=== PATIENT | female | born 1950 | race Caucasian/White ===

== ENCOUNTER 2017-07-16 09:53 | Day surgery (SDC) | payer MEDICARE ==
[~2017-07-16] VITALS: Ht 162.6 cm; Wt 87.5 kg
[~2017-07-16 09:53] MED LIST: AMOX; ASPI325 PO; CETI5 PO; CHOL10002 PO; CLIN300 PO; IBUP800 PO; NAPR550 PO; OMEPRAZOLE MAGN20 MG PO; OXYACE5T PO; PRAV20 PO; PROM25 PO; RXHYDACE PO; RXNAPNA550 PO; VICODIN
[2017-07-16] MEDS ORDERED: ACET500 (12:04)
[2017-07-16] MEDS ORDERED: ACET500 PO (12:04)
[2017-07-16] MEDS ORDERED: OXYC5 PO (12:05)
[2017-07-17 04:15] LABS: BASOPHILS ABSOLUTE AUTO 0.01 K/mm3 (0.00-0.23); BASOPHILS PERCENT AUTO 0 % (0-2); EOSINOPHILS PERCENT AUTO 0 % (0-6); Hematocrit 35.5 % (33.0-51.0); Hemoglobin 11.8 g/dL (11.5-16.0); IMMATURE GRAN ABSOLUTE AUTO 0.08 K/mm3 (0.00-0.10); IMMATURE GRAN PERCENT AUTO 1 % (0-1); LYMPHOCYTES ABSOLUTE AUTO 1.24 K/mm3 (0.84-5.20); LYMPHOCYTES PERCENT AUTO 8 % (21-46); MONOCYTES ABSOLUTE AUTO 0.95 K/mm3 (0.16-1.47); MONOCYTES PERCENT AUTO 6 % (4-13); Mean Corpuscular HGB 28.8 pg (26.0-34.0); Mean Corpuscular HGB Conc 33.2 g/dL (31.5-36.5); Mean Corpuscular Volume 87 fL (80-100); Mean Platelet Volume 10.8 fL (9.1-12.4); NEUTROPHILS ABSOLUTE AUTO 14.12 K/mm3 (1.96-9.15); NEUTROPHILS PERCENT AUTO 86 % (41-73); Platelet Count 223 K/mm3 (150-400); RDW Coefficient Variation 13.2 % (11.7-14.2); RDW Standard Deviation 41.1 fL (35.1-46.3)
[2017-07-17 04:40] LABS: Magnesium, Blood 2.3 mg/dL (1.6-2.4)
[2017-07-17 04:42] LABS: Anion Gap 4 mmol/L (6-16); Blood Urea Nitrogen 12 mg/dL (8-24); Bun/Creatinine Ratio 15.9 (12.0-20.0); CO2, Blood 29 mmol/L (21-32); Calcium, Blood 8.5 mg/dL (8.5-10.1); Chloride, Blood 106 mmol/L (98-108); Creatinine, Blood 0.76 mg/dL (0.40-1.00); Glomerular Filtration Rate >60 (60-); Glucose, Blood 132 mg/dL (70-99); Potassium, Blood 5.1 mmol/L (3.5-5.5); Sodium, Blood 139 mmol/L (136-145)
== END 2017-07-17 11:02 | disposition home or self-care (01) ==
LOC: PRE IP 09:53 → BC 09:53 → ORSCMMR 09:53 → SURS 09:53 → BC 09:53 → SURS 09:56 → BC 09:56 → SURS 09:56 → PRE IP 11:30 → EDSTATUS 11:30 → SURS 14:31 → ORSCMMR 07-17 11:02
PROVIDERS: Orthopaedic Surgery
PROC: 0SRD0J9 Replacement of Left Knee Joint with Synthetic Substitute, Cemented, Open Approach (ICD-10-PCS; principal; 2017-07-16 11:30)
DX: M17.12 Unilateral primary osteoarthritis, left knee (principal); E03.9 Hypothyroidism, unspecified; Z86.73 Personal history of transient ischemic attack (TIA), and cerebral infarction without residual deficits; K21.9 Gastro-esophageal reflux disease without esophagitis; Z79.82 Long term (current) use of aspirin; Z79.899 Other long term (current) drug therapy
CPT/HCPCS: 36415; 73560-LT; 80048; 83735; 85025; 88300; 97110; 97116; 97161; C1713; C1776; G8978; G8979; J0171; J0690; J0735; J1100; J1885; J2250; J2370; J2405; J2795; J3010; J7120

== ENCOUNTER 2020-06-14 08:07 | Day surgery (SDC) | payer MEDICARE ==
[~2020-06-14 08:07] MED LIST changes: +ACET500; +ACET500 PO; +OXYC5 PO
[2020-07-13] MEDS ORDERED: ASPI81CH PO (12:59)
[2020-07-13] MEDS ORDERED: MULVITA PO (13:00)
[2020-07-13] MEDS ORDERED: Lipitor20 MG PO (13:00)
[2020-07-13] MEDS ORDERED: ASCO500 PO (13:01)
[2020-07-13] MEDS ORDERED: VITAMIN D PO (13:01)
[2020-07-13] MEDS ORDERED: [UNRECOGNIZED DRUG - OTHER] PO (13:01)
== END 2020-06-14 23:26 | disposition home or self-care (01) ==
LOC: MOI US 08:07 → MOI MAM 08:45 → MOI US 10:15
DX: N60.11 Diffuse cystic mastopathy of right breast (principal)
CPT/HCPCS: 19083; 77065; 88305; A4648; G0279

== ENCOUNTER → 2020-06-23 | Outpatient (CLI) | payer MEDICARE ==
[2020-06-23 14:01] LABS: Source, Urine Clean Catch
[2020-06-23 16:17] LABS: Appearance, Urine Clear (Clear); Bilirubin, Urine Neg (Neg); Blood, Urine 1+ (Neg); Color, Urine Yellow (P-Yellow); Glucose Qualitative, Urine Neg (Neg); Ketones, Urine Neg (Neg); Leukocyte Esterase, Urine Neg (Neg); Nitrite, Urine Neg (Neg); Protein, Urine Neg (Neg); Urobilinogen, Urine NORM (Normal)
[2020-06-23 16:28] LABS: Bacteria Mod /hpf; Squamous Epithelial Cells Few /hpf (Few); White Blood Cells, Urine 0-2 /hpf (0-5)
[2020-06-24 13:08] LABS: HPV 16 Negative (Negative); HPV 18 Negative (Negative); HPV OTHER HR TYPES Negative (Negative)
== END | disposition home or self-care (01) ==
LOC: LAB SHORT 10:32
PROVIDERS: Obstetrics & Gynecology
DX: Z01.419 Encounter for gynecological examination (general) (routine) without abnormal findings (principal); R32 Unspecified urinary incontinence
CPT/HCPCS: 81001; 87086; 87624; G0123

== ENCOUNTER 2020-10-19 08:29 | Day surgery (SDC) | payer MEDICARE ==
[~2020-10-19] VITALS: Ht 162.6 cm; Wt 93.4 kg
[~2020-10-19 08:29] MED LIST changes: +ASCO500 PO; +ASPI81CH PO; +Lipitor20 MG PO; +MULVITA PO; +VITAMIN D PO; +[UNRECOGNIZED DRUG - OTHER] PO
--- NOTE | 2020-10-19 09:18 | NUR ---
Ambulatory in Day SurgeryPatient states colon prep results clear. History, Chart, Medications and Allergies reviewed before start of procedure.Lungs clear T/O to Auscultation. Patient confirms NPO status and agrees with scheduled surgery.
--- NOTE | 2020-10-19 09:44 | NUR ---
10/19/20 0944 Christiano Holley History, Chart, Medications and Allergies reviewed before start of procedure.MONITOR INTACT WITH CONTINUOUS PULSE OXIMETRY AND INTERMITTENT BP.3-LEAD EKG REVIEWED WITH PHYSICIAN PRIOR TO START OF PROCEDURE.O2 VIA N/C INTACT THROUGHOUT SEDATION/PROCEDURE. PATIENT DETERMINED TO BE ASA APPROPRIATE FOR PROPOFOL SEDATION PRIOR TO START OF PROCEDURE BY DR. FUENTES.
--- NOTE | 2020-10-19 10:41 | NUR ---
Patient up to Ambulate independently. Gait steady. Discharge instructions reviewed with patient. Patient verbalizes understanding. Copy given to patient to take home. Discharged via wheelchair to private car for ride home WITH DAUGHTER
== END 2020-10-19 10:46 | disposition home or self-care (01) ==
LOC: ORSCMMR 08:29 → ORD 09:30 → ORSCMMR 09:30
PROVIDERS: Internal Medicine Gastroenterology
PROC: 0DBN8ZX Excision of Sigmoid Colon, Via Natural or Artificial Opening Endoscopic, Diagnostic (ICD-10-PCS; principal; 2020-10-19 09:30)
PROC: 0DBH8ZX Excision of Cecum, Via Natural or Artificial Opening Endoscopic, Diagnostic (ICD-10-PCS; principal; 2020-10-19 09:30)
PROC: 0DBP8ZX Excision of Rectum, Via Natural or Artificial Opening Endoscopic, Diagnostic (ICD-10-PCS; principal; 2020-10-19 09:30)
DX: Z12.11 Encounter for screening for malignant neoplasm of colon (principal); Z86.010 Personal history of colon polyps; K63.5 Polyp of colon; D12.0 Benign neoplasm of cecum; K62.1 Rectal polyp; K64.8 Other hemorrhoids; Z87.11 Personal history of peptic ulcer disease; K21.9 Gastro-esophageal reflux disease without esophagitis; E78.00 Pure hypercholesterolemia, unspecified; Z79.899 Other long term (current) drug therapy
CPT/HCPCS: 88305; J2704; J7120

== ENCOUNTER → 2021-04-25 | Outpatient (CLI) | payer MEDICARE ==
[2021-04-26 15:11] LABS: Stool Occult Bld Immuno 1 Negative (NEGATIVE)
== END | disposition home or self-care (01) ==
LOC: LAB SHORT 10:56
PROVIDERS: Family Medicine
DX: Z12.11 Encounter for screening for malignant neoplasm of colon (principal)
CPT/HCPCS: G0328

== ENCOUNTER → 2021-09-07 | Outpatient (CLI) | payer MEDICARE ==
[2021-09-08 15:11] LABS: HPV 16 Negative (Negative); HPV 18 Negative (Negative); HPV OTHER HR TYPES Negative (Negative)
== END | disposition home or self-care (01) ==
LOC: LAB SHORT 16:26 → LAB 16:26
PROVIDERS: Obstetrics & Gynecology
DX: Z01.419 Encounter for gynecological examination (general) (routine) without abnormal findings (principal)
CPT/HCPCS: 87624; G0123

== ENCOUNTER → 2022-08-18 | Outpatient (CLI) | payer MEDICARE | LOC: PLD 07:45 → LAB SHORT 07:45 | DX: N93.8 Other specified abnormal uterine and vaginal bleeding (principal) | CPT/HCPCS: 88305 ==

== ENCOUNTER 2022-11-23 09:53 | Day surgery (SDC) | payer MEDICARE ==
[~2022-11-23] VITALS: Ht 160 cm; Wt 92.0 kg
[2022-11-23] MEDS ORDERED: OMEP20ER (10:26)
[2022-11-23] MEDS ORDERED: SOLIFENACIN SUCC5 MG PO (10:27)
[2022-11-23] MEDS ORDERED: OMEP20ER PO (10:27)
[2022-11-23 12:13] VITALS: BP 111/72
== END 2022-11-23 12:06 | disposition home or self-care (01) ==
LOC: ORSCSDS 09:53
PROVIDERS: Internal Medicine Gastroenterology
PROC: 0DB68ZX Excision of Stomach, Via Natural or Artificial Opening Endoscopic, Diagnostic (ICD-10-PCS; principal; 2022-11-23 11:30)
PROC: 0DB58ZX Excision of Esophagus, Via Natural or Artificial Opening Endoscopic, Diagnostic (ICD-10-PCS; principal; 2022-11-23 11:30)
DX: K21.9 Gastro-esophageal reflux disease without esophagitis (principal); K44.9 Diaphragmatic hernia without obstruction or gangrene; K31.89 Other diseases of stomach and duodenum; Z86.73 Personal history of transient ischemic attack (TIA), and cerebral infarction without residual deficits; I10 Essential (primary) hypertension; Z86.010 Personal history of colon polyps; Z79.899 Other long term (current) drug therapy
CPT/HCPCS: 88305; 88342; J2704; J7120

== ENCOUNTER → 2024-12-11 | Outpatient (CLI) | payer MEDICARE ==
[~2024-12-11] MED LIST changes: +OMEP20ER; +OMEP20ER PO; +SOLIFENACIN SUCC5 MG PO
== END ==
LOC: LAB SHORT 08:06 → LAB 08:06
DX: N95.0 Postmenopausal bleeding (principal)
CPT/HCPCS: 88305